=== PATIENT | female | born 1950 | race Caucasian/White ===

== ENCOUNTER → 2016-06-17 | Outpatient (CLI) | payer MEDICARE ==
[~2016-06-17] MED LIST: BLOOD PRESSURE; HYDROCODONE BIT1 T11 PO; LISINOPRIL/HCTZ1 TA3 PO; VICODIN 5/500 505 MG PO
[2016-06-17 11:17] LABS: HEMOGLOBIN A1c 6.8 % (4.8-5.6)
[2016-06-17 11:18] LABS: BUN 25 mg/dl (7-24); CARBON DIOXIDE 28 mmol/L (21-32); CHLORIDE 103 mmol/L (98-107); CHOLESTEROL 158 mg/dL (<200); CPK 240 U/L (26-192); EST GLOM FILT AFRICAN AMERICAN > 60 ml/min; GLUCOSE 126 mg/dL (65-99); HDL CHOLESTEROL 72 mg/dl (40-60); LDL CHOLESTEROL 74 mg/dL (9-159); POTASSIUM 3.8 mmol/L (3.5-5.1); SODIUM 141 mmol/L (136-145); TRIGLYCERIDES 61 mg/dl (<150); VLDL CHOLESTEROL 12 mg/dL (6-40)
[2016-06-18 10:05] LABS: MICRO ALBUMIN/CRE RATIO 8.2 (0.0-30.0)
== END | disposition home or self-care (01) ==
LOC: LAB 10:23
PROVIDERS: Family Medicine
DX: E78.00 Pure hypercholesterolemia, unspecified (principal); E11.9 Type 2 diabetes mellitus without complications

== ENCOUNTER → 2016-12-16 | Outpatient (CLI) | payer MEDICARE ==
[2016-12-16 12:43] LABS: BUN 32 mg/dl (7-24); CHLORIDE 105 mmol/L (98-107); CREATININE 0.72 mg/dL (0.55-1.02); POTASSIUM 3.9 mmol/L (3.5-5.1); SODIUM 142 mmol/L (136-145)
== END | disposition home or self-care (01) ==
LOC: LAB 11:00
PROVIDERS: Family Medicine
DX: E11.9 Type 2 diabetes mellitus without complications (principal)

== ENCOUNTER → 2017-01-06 | Outpatient (CLI) | payer MEDICARE | END | disposition home or self-care (01) | LOC: MAMMO 09:53 | DX: Z12.31 Encounter for screening mammogram for malignant neoplasm of breast (principal) ==

== ENCOUNTER 2017-04-01 16:07 | Emergency (ER) | payer MEDICARE ==
[~2017-04-01] VITALS: Ht 170.1 cm; Wt 90.7 kg
[2017-04-01] MEDS ORDERED: NAPROSYN500 MG PO (16:50)
== END 2017-04-01 18:16 | disposition home or self-care (01) ==
LOC: ED 16:07
DX: S60.221A Contusion of right hand, initial encounter (principal); Z79.899 Other long term (current) drug therapy; W23.0XXA Caught, crushed, jammed, or pinched between moving objects, initial encounter; Y93.29 Activity, other involving ice and snow; Y92.89 Other specified places as the place of occurrence of the external cause; Y99.9 Unspecified external cause status

== ENCOUNTER 2017-05-13 16:01 | Inpatient (IN) | payer MEDICARE ==
[~2017-05-13] VITALS: Ht 170.1 cm; Wt 104.4 kg
--- NOTE | ~2017-05-13 | PR ---
[place], [place] PROGRESS NOTE NAME: RICKI BERMUDEZ UNIT #: [id number] ROOM: 507 DOCTOR: JING BAKER MD BIRTHDATE: [birth year] DOS: 05/15/2017 SUBJECTIVE: The patient was seen today at her bedside on 05/15/2017 for followup of her syncopal episodes and newly documented left bundle branch block. She states that she has felt well overnight. She has not had any further lightheadedness, although she does have some dyspnea with exertion. Her monitor strips show sinus rhythm and sinus tachycardia, but no AV block and no ventricular tachycardia. PHYSICAL EXAMINATION: VITAL SIGNS: Today, her pulse is 65 and regular, blood pressure is 113/54. She has shown no significant orthostatic hypotension. She is afebrile. She weighs 104.4 kilograms with a body mass index of 36.1. HEENT: Normocephalic, atraumatic. Extraocular muscles are intact. Sclerae are clear. Pupils are equal, round and react to light. The oral mucosa is moist. Tongue is midline. NECK: Supple. She has no jugular distention. Carotids are full. LUNGS: Respirations are unlabored. Chest is clear to auscultation and percussion. She has no presacral edema or chest wall tenderness. HEART: Has a regular rhythm. She has a fourth heart sound, but no third heart sound and no significant murmurs. ABDOMEN: Obese, but otherwise benign. EXTREMITIES: Showed no edema. LABORATORY DATA: Hemoglobin is 13.3, white count 7900, platelet count 257,000. Sodium 141, potassium 3.7, BUN 20 and creatinine 0.7. Serial troponin levels have been normal. TSH is normal at 2.16. IMPRESSION: 1. Near syncopal and syncopal episodes. 2. Newly recognized left bundle branch block. 3. History of essential hypertension. 4. Type 2 diabetes mellitus. 5. Hyperlipidemia. PLAN: We will continue to observe her on the monitor. I do plan on a pharmacologic myocardial perfusion study and echocardiogram within the next 24 hours. Further recommendations depend upon the results of the studies. I thank the hospitalist physicians for asking our advice regarding the patient's care. [place], [place] PROGRESS NOTE NAME: RICKI BERMUDEZ UNIT #: [id number] ROOM: 507 DOCTOR: JING BAKER MD BIRTHDATE: [birth year] JING BAKER MD CM:PNTRANS [id number] JING BAKER MD 05/15/17 1605 interface
--- NOTE | ~2017-05-13 | CON ---
[place], [place] REPORT OF CONSULTATION [id number] UNIT #: [id number] ROOM: 507 DOCTOR: JING BAKER MD BIRTHDATE: [birth year] DOS: 05/14/2017 REASON FOR CONSULTATION: Near syncope, left bundle branch block. HISTORY OF PRESENT ILLNESS: The patient is a 67-year-old woman who has no previous history of heart disease. She is obese and does have hypertension, hyperlipidemia and type 2 diabetes mellitus. She states that for the last 6 months she has had frequent episodes of near syncope with 1 episode where she passed out completely. She states that these began when she was taking care of 3 elderly dogs, all of which subsequently . She was living alone at that time and the dogs were her family. She took the loss quite hard. She stated that about that time, her appetite decreased and she began eating and drinking less. She did not, however, lose any weight. Simultaneously, she began to have episodes of lightheadedness. These mostly occurred when she stood up after sitting for long periods, but occasionally occurred while she was sitting down and rarely occurred while she was lying down. She described a sensation that she felt "far away" and that things in front of her were getting kaiser. She denied any palpitations, chest pain, or dyspnea, but she did feel diaphoretic and a little queasy. The episodes usually will last only several seconds and resolve if she stands still for a moment. Usually the episodes are several weeks apart, but on the day of admission, she had 2 in one day. She was directed to the emergency room where she was noted to have a left bundle branch block. No previous EKGs were available and therefore she was admitted to the hospital for further assessment. Since she has been here, she has continued to show the left bundle branch block. She has not had any arrhythmias on the monitor. She was given a liter of fluids upon arrival. Orthostatic blood pressure measurements done since her admission have shown no signs of orthostasis. PAST MEDICAL HISTORY: Includes: 1. Type 2 diabetes mellitus. 2. Hyperlipidemia. 3. Essential hypertension. 4. Morbid obesity with BMI 36.1. 5. History of varicose vein stripping from her right leg. 6. Six-month history of multiple episodes of near syncope prior to current admission. 7. Left bundle branch block, first documented this admission, 05/13/2017. FAMILY HISTORY: Her father in his 70s from atherosclerotic heart disease. Her mother in her 80s from surgical complications. There is no family history of early coronary disease. MEDICATIONS: Prior to admission, atorvastatin 20 mg daily, lisinopril with hydrochlorothiazide 20/25 once a day and metformin 500 mg b.i.d. ALLERGIES: She has no known drug allergies. REVIEW OF SYSTEMS: The patient denies diplopia, loss of vision. She has had lightheadedness and at least 1 syncopal episode. She has had some nausea with [place], [place] REPORT OF CONSULTATION NAME: RICKI BERMUDEZ UNIT #: [id number] ROOM: 507 DOCTOR: JING BAKER MD BIRTHDATE: [birth year] the lightheadedness. She denies cough, fevers, chills or recent weight decline. She denies focal weakness. She denies hemoptysis or hematemesis. She denies any blood in her stools or urine. She denies any peripheral edema. She denies heat or cold intolerance and denies polyuria or polydipsia. The remainder of her review of systems is negative except as noted above. SOCIAL HISTORY: The patient lives alone. She does not smoke, consume alcohol or take illegal drugs. PHYSICAL EXAMINATION: GENERAL: Reveals an overweight white female who is awake, alert and oriented. VITAL SIGNS: Pulse is 96 and regular, blood pressure is 139/71. She is afebrile. She weighs 104.4 kg and has a body mass index of 36.1. HEENT: Normocephalic, atraumatic. Extraocular muscles are intact. Sclerae are clear. Pupils are equal, round and react to light. The oral mucosa is moist. Tongue is midline. NECK: Supple. She has no jugular distention. Carotids are full. I heard no bruits. She had no neck or supraclavicular masses and no thyromegaly. LUNGS: Respirations are unlabored. Her chest is clear to auscultation and percussion. She has no presacral edema or chest wall tenderness. CARDIOVASCULAR: Has a regular rhythm. She has a soft S4 gallop, but no S3 or murmur. The PMI is not displaced. There is no precordial heave, lift or thrill. ABDOMEN: Obese, but otherwise benign, without masses, organomegaly or bruits. EXTREMITIES: Showed no edema. She does have some spider veins on her ankles. Pedal pulses are easily palpated in the feet bilaterally. There are no cords and no Homans sign. There were no obvious skin rashes. LABORATORY DATA: Hemoglobin is 13.3 with hematocrit 40.7. There are 7900 white cells, 257,000 platelets. Sodium is 141, potassium 3.7, BUN 20, creatinine 0.7. Sugar was 111 on admission. Hemoglobin A1c 6.5, magnesium 2.3. Troponin levels have been negative times 3. I did review her electrocardiogram and agree that it shows a left bundle branch block. TSH is 2.16 and normal. IMPRESSIONS: 1. Multiple episodes of near syncope with at least 1 total loss of consciousness. 2. Newly recognized left bundle branch block. The age of this finding is not known since the patient has not had a previous EKG. PLAN: The etiology of the patient's symptoms is not yet clear. She may have had orthostatic lightheadedness and near syncope due to dehydration and decreased oral intake. Hypoglycemia could play a role. She could also have hypotension due to her medications and poor oral intake. Finally, arrhythmia may be the culprit. In order to evaluate her further, we will continue her on her general farmer and will do an echocardiogram and pharmacologic stress test when those studies are available. Further recommendations, which may include an outpatient tilt table study, will depend upon the results of her initial [place], [place] REPORT OF CONSULTATION NAME: RICKI BERMUDEZ UNIT #: [id number] ROOM: 507 DOCTOR: JING BAKER MD BIRTHDATE: [birth year] assessment. We thank the hospitalist physicians for asking our advice regarding her care. JING BAKER MD CM:CONSTR:REPORT OF CONSULTATION 1417 05/14/17 1521 interface
--- NOTE | ~2017-05-13 | PR ---
[place], [place] PROGRESS NOTE NAME: [facility]Z [id number] UNIT #: [id number] ROOM: 507 DOCTOR: JING BAKER MD BIRTHDATE: [birth year] DOS: 05/16/2017 The patient was seen just prior to her stress test in the Cardiology Department on 05/16/2017. She is feeling better and denies any lightheadedness, palpitations or syncope. Monitor still shows episodes of sinus tachycardia, but no significant arrhythmias. She remains in left bundle branch block. PHYSICAL EXAMINATION: VITAL SIGNS: Today, her pulse is 86 and regular, blood pressure is 139/64. She is afebrile. She weighs 104.4 kilograms with a body mass index of 36.1. NECK: Supple. She has no jugular distention. Carotids are full. LUNGS: Respirations are unlabored. Chest is clear. HEART: Has a regular rhythm with an S4 gallop. ABDOMEN: Benign. EXTREMITIES: Showed no edema. IMPRESSION: 1. Near syncopal and syncopal episodes. 2. Newly recognized left bundle branch block. 3. History of essential hypertension. 4. Type 2 diabetes mellitus. 5. Hyperlipidemia. PLAN: We will proceed with her pharmacologic stress test as scheduled. An echocardiogram is also pending. Further recommendations will depend upon the results of those tests. I thank the hospitalist physicians for asking our advice regarding her care. JING BAKER MD CM:PNTRANS 1002 1014 JING BAKER MD 05/16/17 1012 interface
[~2017-05-13 16:01] MED LIST changes: +LISINOPRIL-HCT1 EACH PO; -LISINOPRIL/HCTZ1 TA3 PO; +NAPROSYN500 MG PO
[2017-05-13 16:19] VITALS: BP 159/76
[2017-05-13] MEDS ORDERED: METFORMIN500 MG PO (16:19)
[2017-05-13] MEDS ORDERED: ATORVASTATIN CA20 M1 PO (16:19)
[2017-05-13 16:44] VITALS: BP 148/76
[2017-05-13 16:52] LABS: BASO # 0.1 10*3/uL (0.0-0.1); BASO % 0.5 % (0.0-1.0); EOS # 0.1 10*3/uL (0.0-0.4); EOS % 0.5 % (1.0-4.0); HEMATOCRIT 45.5 % (37.0-47.0); HEMOGLOBIN 15.1 g/dl (12.0-16.0); LYMPH # 1.4 10*3/uL (1.3-4.4); LYMPH % 15.5 % (27.0-41.0); MEAN CORPUSCULAR HGB 29.5 pg (27.0-31.0); MEAN CORPUSCULAR HGB CONC 33.2 g/dl (33.0-37.0); MEAN PLATELET VOLUME 9.1 fl (9.6-12.3); MONO # 0.6 10*3/uL (0.1-1.0); MONO % 6.1 % (3.0-9.0); NEUT # 7.1 10*3/uL (2.3-7.9); NEUT % 77.2 % (47.0-73.0); PLATELET COUNT AUTOMATED 284 10*3/uL (130-400); RED BLOOD COUNT 5.11 10*6/uL (4.10-5.10); RED CELL DISTRI WIDTH 13.2 % (0-14.5); WHITE BLOOD COUNT 9.2 10*3/uL (4.8-10.8)
[2017-05-13 17:08] LABS: ALKALINE PHOSPHATASE 107 U/L (45-117); BUN 24 mg/dl (7-24); CHLORIDE 101 mmol/L (98-107); POTASSIUM 3.7 mmol/L (3.5-5.1); SGOT/AST 17 IU/L (3-35); SGPT/ALT 27 U/L (12-78); SODIUM 138 mmol/L (136-145); TOTAL PROTEIN 7.9 gm/dL (6.4-8.2)
[2017-05-13 17:10] LABS: TROPONIN I < 0.015 ng/ml (<0.045)
[2017-05-13 17:43] VITALS: BP 122/64
[2017-05-13 18:32] VITALS: BP 134/66
[2017-05-13 18:55] VITALS: BP 130/99
[2017-05-13 19:26] LABS: BILIRUBIN NEGATIVE (NEGATIVE); BLOOD 1+ (NEGATIVE); CLARITY CLEAR (CLEAR); COLOR YELLOW (YELLOW); GLUCOSE NEGATIVE (NEGATIVE); KETONE NEGATIVE (NEGATIVE); LEUKO ESTERASE TRACE (NEGATIVE); NITRITE NEGATIVE (NEGATIVE); PH 5.5 (5.0-9.0); SPECIFIC GRAVITY 1.025 (1.005-1.030); UROBILINOGEN 0.2 E.U./dl (0.2-1.0)
[2017-05-13 19:37] LABS: BACTERIA TRACE; EPITHELIAL CELLS 45-50
[2017-05-13 19:45] VITALS: BP 130/99
[2017-05-14] VITALS: BP 111/66
[2017-05-14 06:34] LABS: BASO # 0.1 10*3/uL (0.0-0.1); BASO % 0.6 % (0.0-1.0); EOS # 0.3 10*3/uL (0.0-0.4); EOS % 3.7 % (1.0-4.0); HEMATOCRIT 40.7 % (37.0-47.0); HEMOGLOBIN 13.3 g/dl (12.0-16.0); LYMPH # 2.3 10*3/uL (1.3-4.4); LYMPH % 28.4 % (27.0-41.0); MEAN CELL VOLUME 89.5 fl (81.0-99.0); MEAN CORPUSCULAR HGB 29.2 pg (27.0-31.0); MEAN CORPUSCULAR HGB CONC 32.7 g/dl (33.0-37.0); MEAN PLATELET VOLUME 9.5 fl (9.6-12.3); MONO # 0.6 10*3/uL (0.1-1.0); MONO % 8.1 % (3.0-9.0); NEUT # 4.6 10*3/uL (2.3-7.9); NEUT % 58.7 % (47.0-73.0); PLATELET COUNT AUTOMATED 257 10*3/uL (130-400); RED BLOOD COUNT 4.55 10*6/uL (4.10-5.10); RED CELL DISTRI WIDTH 13.3 % (0-14.5); WHITE BLOOD COUNT 7.9 10*3/uL (4.8-10.8)
[2017-05-14 07:04] LABS: ALBUMIN 3.2 gm/dl (3.1-4.5); BUN 20 mg/dl (7-24); CHLORIDE 105 mmol/L (98-107); POTASSIUM 3.7 mmol/L (3.5-5.1); SODIUM 141 mmol/L (136-145); TOTAL PROTEIN 6.4 gm/dL (6.4-8.2)
[2017-05-14 07:11] LABS: ALKALINE PHOSPHATASE 89 U/L (45-117); CHOLESTEROL 134 mg/dL (<200); HDL CHOLESTEROL 51 mg/dl (40-60); LDL CHOLESTEROL 70 mg/dL (9-159); PHOSPHOROUS 3.8 mg/dL (2.5-4.9); SGOT/AST 17 IU/L (3-35); SGPT/ALT 24 U/L (12-78); TRIGLYCERIDES 67 mg/dl (<150); VLDL CHOLESTEROL 13 mg/dL (6-40)
[2017-05-14 08:00] VITALS: BP 126/82
[2017-05-14 08:33] LABS: VITAMIN D, 25-HYDROXY 32.5 ng/mL (30-100)
[2017-05-14 12:00] VITALS: BP 139/71
[2017-05-14 16:00] VITALS: BP 133/70
[2017-05-14 20:00] VITALS: BP 141/65
[2017-05-15] VITALS: BP 127/62
[2017-05-15 08:00] VITALS: BP 131/73
[2017-05-15 12:00] VITALS: BP 113/54
[2017-05-15 16:00] VITALS: BP 133/67
[2017-05-15 20:09] VITALS: BP 145/56
[2017-05-16] VITALS: BP 112/58
[2017-05-16 08:00] VITALS: BP 139/64
[2017-05-16 12:00] VITALS: BP 137/76
[2017-05-16 16:00] VITALS: BP 123/67
== END 2017-05-16 18:05 | disposition home or self-care (01) | DRG 312 ==
LOC: ED 16:01 → 5E 17:57 → EDHOLD 17:57 → 5E 18:10
PROVIDERS: Internal Medicine; Physician Assistant
PROC: 3E073KZ Introduction of Other Diagnostic Substance into Coronary Artery, Percutaneous Approach (ICD-10-PCS; principal; 2017-05-16)
PROC: 4A02XM4 Measurement of Cardiac Total Activity, External Approach (ICD-10-PCS; principal; 2017-05-16)
DX: R55 Syncope and collapse (principal); E87.2 Acidosis; E11.65 Type 2 diabetes mellitus with hyperglycemia; I50.32 Chronic diastolic (congestive) heart failure; I44.7 Left bundle-branch block, unspecified; E66.01 Morbid (severe) obesity due to excess calories; E83.41 Hypermagnesemia; D72.810 Lymphocytopenia; I11.0 Hypertensive heart disease with heart failure; K44.9 Diaphragmatic hernia without obstruction or gangrene; E78.5 Hyperlipidemia, unspecified; Z68.36 Body mass index [BMI] 36.0-36.9, adult; Z79.84 Long term (current) use of oral hypoglycemic drugs; Z79.899 Other long term (current) drug therapy; Z82.49 Family history of ischemic heart disease and other diseases of the circulatory system

== ENCOUNTER → 2017-06-02 | Outpatient (CLI) | payer MEDICARE ==
[~2017-06-02] MED LIST changes: +ATORVASTATIN CA20 M1 PO; +METFORMIN500 MG PO
== END | disposition home or self-care (01) ==
LOC: US 15:28
DX: I65.23 Occlusion and stenosis of bilateral carotid arteries (principal)

== ENCOUNTER → 2017-09-13 | Outpatient (CLI) | payer MEDICARE ==
[2017-09-13 12:28] LABS: BUN 22 mg/dl (7-24); CHLORIDE 110 mmol/L (98-107); POTASSIUM 4.7 mmol/L (3.5-5.1); SODIUM 144 mmol/L (136-145)
[2017-09-13 12:32] LABS: CHOLESTEROL 161 mg/dL (<200); CREATININE 0.71 mg/dL (0.55-1.02); HDL CHOLESTEROL 56 mg/dl (40-60); LDL CHOLESTEROL 89 mg/dL (9-159); TRIGLYCERIDES 82 mg/dl (<150); VLDL CHOLESTEROL 16 mg/dL (6-40)
== END | disposition home or self-care (01) ==
LOC: LAB 11:24
PROVIDERS: Family Medicine
DX: E78.00 Pure hypercholesterolemia, unspecified (principal); E11.9 Type 2 diabetes mellitus without complications

== ENCOUNTER → 2018-01-10 | Outpatient (CLI) | payer MEDICARE ==
[2018-01-10 12:29] LABS: BUN 21 mg/dl (7-24); CHLORIDE 107 mmol/L (98-107); POTASSIUM 4.2 mmol/L (3.5-5.1); SODIUM 142 mmol/L (136-145)
== END | disposition home or self-care (01) ==
LOC: LAB 10:56
PROVIDERS: Family Medicine
DX: E11.9 Type 2 diabetes mellitus without complications (principal)